=== PATIENT | female | born 1955 | race Caucasian/White ===

== ENCOUNTER 2019-04-26 11:01 | Outpatient (CLI) | payer MEDICARE ==
[2019-04-26 19:13] LABS: CHOL/HDL RATIO 3.4 (<4.4); CHOLESTEROL 263 mg/dL; GLUCOSE,FASTING 93 mg/dL (70-100); HDL CHOLESTEROL 77 mg/dL; LDL CHOLESTEROL,CALCULATED 175 mg/dL; LDL/HDL RATIO 2.3 (<4.4); VLDL CHOLESTEROL 11 mg/dL
== END 2019-04-26 23:59 | disposition home or self-care (01) ==
LOC: LAB.N 11:01
PROVIDERS: ATTEND Family Medicine
DX: Z13.1 Encounter for screening for diabetes mellitus (principal); Z13.220 Encounter for screening for lipoid disorders
CPT/HCPCS: 36415; 80061; 82947; 83721